=== PATIENT | female | born 1950 | race African-American/Black ===

== ENCOUNTER 2018-12-06 05:56 | Inpatient (IN) | payer OTHER ==
[~2018-12-06] VITALS: Ht 157.5 cm; Wt 48.8 kg
[2018-12-06] VITALS (7 sets, daily range): BP systolic 152–187; BP diastolic 72–93
[2018-12-06] MEDS ORDERED: ANTIHYPERTENSIVE (06:04)
[2018-12-06] MEDS ORDERED: HIGH CHOLESTEROL (06:04)
[2018-12-06 10:46] LABS: HEMATOCRIT 36.1 % (37.0-47.0); HEMOGLOBIN 11.9 gm/dL (12.0-15.0); MCH 26.2 pg (26.0-34.0); MCV 79.3 fL (80.0-100.0); RBC 4.56 mil/uL (4.20-5.00); RDW 16.6 % (10.5-14.5); WBC 8.4 thou/uL (4.0-11.0)
[2018-12-06 10:54] LABS: CALCIUM 9.7 mg/dL (8.5-10.1); CREATININE 0.9 mg/dL (0.6-1.0); POTASSIUM 3.8 mmol/L (3.5-5.1)
--- NOTE | 2018-12-06 14:09 | NUR ---
ASSESSMENT-PT LIVES IN A DUPLEX ALONE. SHE HAS 4 WHEELED AND 3 WHEELED WALKERS THAT SHE USES TO GET AROUND. SHE DOES ALL OF HER OWN COOKING, CLEANING AND LAUNDRY. PT HAD A FALL. SHE HAS HAD HH IN THE PAST BUT CANNOT REMEMBER THE NAME OF THE AGENCY. PT DOES NOT DRIVE. SHE HAS A NIECE THAT LIVES ON THE [place] SIDE THAT SHE CAN COUNT ON AND A NEPHEW BUT HE DOES NOT HAVE A CAR. PT GETS HER GROCERIES THRU [employer] [facility]IV[facility]. SHE HAS SOMEONE THAT PICKS HER UP TO TAKE HER TO [facility]. PT SAYS SHE CAN DRIVE SHORT DISTANCES IF SHE HAS TO BUT SHE IS NOT SUPPOSED TO DRIVE. AWAITING [facility] REC TO ASSIST WITH DC PLANNING. FOLLOWING.
--- NOTE | 2018-12-06 15:23 | NUR ---
ADMISSION ASSESMENT COMPLETED. VSS. A/O. NOTED TERMORS. DENIES PAIN. NO NOTED SOA. IMMOBILIZER TO RIGHT LEG. PT RESTING IN BED. FAMILY AT BEDSIDE. PT REFUSING BED ALARM- EDUCATED ABOUT POLICY BUT PT CONTINUOUS TO REFUSE. WILL CONT. TO MONITOR.
--- NOTE | 2018-12-07 05:58 | NUR ---
PT HAS THE ORTHOPEDIC SHOE TO R FOOT. SHE AMBULATES WITH UNSTEADY GAIT. USES WALKER.FALL EDUCATION PROVIDED ESPECIALLY ABOUT KEEPING BED ALARM ON-PT CALLS APPROPRIATELY BUT DOES NOT WANT BED ALARM ON. VOIDING OKAY PER BATHROOM.WITH BUE TREMORS. URINARY FREQUENCY. SOME SLIGHT SPEECH SLUR.PAIN TO R ANKLE WELL CONTROLLED WITH ORAL PAIN MEDS.
[2018-12-07 07:31] VITALS: BP 170/78
--- NOTE | 2018-12-07 09:19 | NUR ---
PT A&OX4, AMBULATES IN ROOM WITH ASSIST X1 AND WALKER. R ANKLE WITH ORTHO BOOT. C/O R ANKLE PAIN AT 6-7. PT TOLERATING PO PAIN MED WELL. WILL CONT POC.
[2018-12-07 11:57] VITALS: BP 151/74
[2018-12-07] MEDS ORDERED: NORCO 5-325 TA1 EACH PO (15:44)
[2018-12-07] MEDS ORDERED: MIRALAX17 GM PO (15:45)
--- NOTE | 2018-12-07 16:33 | NUR ---
YURY reviewed chart and spoke with nursing and attending physician. Pt was [facility] to [facility] earlier today. [facility] rehab tech states they are able to accept pt. YURY updated attending physician. Discharge orders written by hospitalist LIQUOR MAKER. Pt will d/c to [facility] later today. Rehab CM to follow and assist as needed with discharge planning.
--- NOTE | 2018-12-07 20:02 | NUR ---
PATIENT TRANSFERRED FROM [facility], REPORT FROM NAMAN/SUPA. PATIENT ALERT AND ORIENTED X 4. UP WITH SBA TO BATHROOM. PATIENT HAS BOOT TO RIGHT LOWER EXTREMITY. PATIENT WILL BE DISCHARGE TO [facility], REPORT GIVEN TO TORRIE/SUPA. PATIENT RECEIVED HYDROCODONE 2 TABLETS X 1 THIS SHIFT. PATIENT HAS LEFT AC IV IN PLACE, FLUSHED AND REMAINS PATENT. THIS RN REPORTED OFF TO LEE/SUPA.
[2018-12-07 20:38] VITALS: BP 157/89
--- NOTE | 2018-12-07 20:43 | NUR ---
Pt A/OX4,up with AX1,RW/GB to bathroom. Has ataxia with unsteady gait. Walking boot in place on right foot. CMS intact to extremity and able to move all toes. Report had been called earlier by nurse to N for transfer. Pt transferred to [facility] at this time,assisted by nursing staff. All personal belongings sent with pt. VSS.States pain is tolerable at this time.
== END 2018-12-07 20:45 | DRG 563 ==
LOC: ER 05:56 → 4E 09:27 → EROBS 09:27 → SICU 09:27 → 4E 10:40 → SICU 12-07 11:40
PROVIDERS: Emergency Medicine; ADMIT Hospitalist
PROC: 2W3LX1Z Immobilization of Right Lower Extremity using Splint (ICD-10-PCS; principal; 2018-12-06)
DX: S82.61XA Displaced fracture of lateral malleolus of right fibula, initial encounter for closed fracture (principal); R27.0 Ataxia, unspecified; G35 Multiple sclerosis; Z60.2 Problems related to living alone; Z47.89 Encounter for other orthopedic aftercare; W18.39XA Other fall on same level, initial encounter; Y93.89 Activity, other specified; Y92.090 Kitchen in other non-institutional residence as the place of occurrence of the external cause; Y99.8 Other external cause status; Z79.899 Other long term (current) drug therapy
CPT/HCPCS: 10084

== ENCOUNTER 2018-12-07 17:25 | Inpatient (IN) | payer OTHER ==
[~2018-12-07] VITALS: Ht 157.5 cm; Wt 215.9 kg
--- NOTE | ~2018-12-07 | PLAN ---
[facility] [place] [address] REHAB UNIT PLAN OF CARE Name: ALISE CANTU Room #: 514-P ADM IN M.R.#: [id number] Admission: 12/07/18 ������������������ Attend Phys: Marck Muñoz MD Discharge: ������������������ Date of : 50 Report #: [id number] THIS REPORT FOR: //name// CC: Marck Muñoz DATE OF SERVICE: 12/07/2018 PROGRESS NOTE/OVERALL PLAN OF CARE SUBJECTIVE: The patient is seen back today in followup. She is in no distress. Last recorded temperature 98, pulse 83, respirations 18, blood pressure 141/81. She is working in therapies with transfers min assist, gait min assist, 70 feet with a front-wheeled walker, 12 steps min assist. In occupational therapy, lower body dressing is standby assist for socks and hose. She is being further evaluated. ASSESSMENT: 1. 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 2. Functional mobility and activities of daily living deficits. 3. Right lateral malleolar fracture, nondisplaced, allowed weightbearing as tolerated with CAM walker boot. 4. History of bilateral rotator cuff injuries. 5. Hypertension. 6. Elevated cholesterol. PLAN: The overall plan of care is based on the preadmission screen, post-admission physician evaluation, and information garnered from therapy assessments. 1. Estimated length of stay is probably at least 1-2 weeks depending progress. 2. Medical prognosis is reasonably good. 3. Anticipated interventions include the interdisciplinary acute inpatient rehabilitation program with the goal of maximizing the patient's functional independence, so she can hopefully return back to her prior living situation. 4. Anticipated functional outcomes would be for the patient to become modified independent with transfers, mobility, ADLs, so she can hopefully return back to her prior living situation. 5. Discharge destination is back to the home setting where she lives in a duplex alone. 6. Expected therapy by discipline includes PT and OT 1-1/2 hours per day each 5 days a week throughout the duration of the acute inpatient rehabilitation stay. ��������������������������������������������� ���������������������������������������� By: ��������������������������������������������� [id number] Marck Muñoz MD /nt
[~2018-12-07 17:25] MED LIST: ANTIHYPERTENSIVE; HIGH CHOLESTEROL; MIRALAX17 GM PO; NORCO 5-325 TA1 EACH PO
[2018-12-07 20:50] VITALS: BP 169/88
--- NOTE | 2018-12-08 00:35 | NUR ---
PT ADMITTED TO [facility] FROM [facility] THIS EVENING. VSS. MEDS GIVEN ORDERED. ADMIT HX AND ASSESSMENT COMPLETED. BOOT ON RIGHT LEG IN PLACE. PRN PAIN MEDICATION WORKING WELL. FALL PRECAUTIONS IN PLACE. WILL CONTINUE TO MONTIOR FREQUENTLY.
[2018-12-08 05:31] LABS: HEMATOCRIT 33.4 % (37.0-47.0); HEMOGLOBIN 10.8 gm/dL (12.0-15.0); MCH 25.9 pg (26.0-34.0); MCHC 32.4 g/dL (28.0-37.0); MCV 80.1 fL (80.0-100.0); RBC 4.17 mil/uL (4.20-5.00); RDW 16.7 % (10.5-14.5); WBC 4.8 thou/uL (4.0-11.0)
[2018-12-08 05:39] LABS: CREATININE 0.9 mg/dL (0.6-1.0); POTASSIUM 3.7 mmol/L (3.5-5.1)
[2018-12-08 07:52] VITALS: BP 146/101
--- NOTE | 2018-12-08 10:00 | NUR ---
cm visited with pt at bedside. a & o x 3, pleasant and able to make her needs know. intro to cm, transition of care, home health, and team meetings. pt reported " live home alone, 1 step to enter house. all on main level. independent, cook, clean, manage own medication and bills. have shower chair. have combated walker for outside the home and walker with seat for inside home. drive very short distance. take cab for transportation. had hh in past but do not remember who it was. [facility]." will cont following as needed for dc needs.
--- NOTE | 2018-12-08 15:01 | NUR ---
PT ALERT AND ORIENTED TIMES FOUR. VSS, 98%RA. PT C/O RIGHT LEG PAIN PRN MEDICATIONS GIVEN WITH GOOD RELEIF. PT WORKED WELL WITH PT/OT THIS SHIFT. PT TOLERATES MEDS AND MEALS. PT PROGRESSING TOWRADS POC GOALS.
[2018-12-08 20:36] VITALS: BP 141/81
--- NOTE | 2018-12-09 01:03 | NUR ---
PT ASSESSMENT COMPLETED AND VSS. MEDS GIVEN ORDERED AND WELL TOLERATED. FALL PRECAUTIONS IN PLACE. UP TO BATHROOM WITH ASST/GAIT/WALKER/BOOT. VOIDING MODERATE AMOUNT OF YELLOW URINE. MEDICATION GIVEN FOR CONSTIPATION. 0 RESULT SO FAR. PRN PAIN MEDICATION WORKING WELL FOR R FOOT PAIN. SLEEPING. WILL CONTINUE TO MONITOR FREQUENTLY.
[2018-12-09 08:15] VITALS: BP 157/80
--- NOTE | 2018-12-09 17:49 | NUR ---
ASSUMED CARE AT APPROX 0715. PATIENT A/O X4. C/O PAIN IN RLE, RELIEVED BY MEDICATION. VSS. PATIENT UP X1 ASSIST GB AND WALKER. AMBULATING TO TOILET TO VOID. FREQUENT VOIDING. PATIENT PARTICIPATED IN THERAPY. BRACE IN PLACE FOR PT AND AT REST, REMOVED FOR DAILY CLEANSING AND SKIN INSPECTION PER ORDERS. SITTING EOB, FAMILY AT BEDSIDE. FALL PRECAUTIONS IN PLACE. PATIENT ROUNDED ON HOURLY. WILL CONTINUE TO MONITOR.
[2018-12-09 20:05] VITALS: BP 154/82
--- NOTE | 2018-12-10 03:19 | NUR ---
assumed care at approx 1900 evening 12/09. pt sitting up in bed at change of shift resting. pt alert and oriented x4, pleasant and cooperative. pt wearing ortho boot to right leg. pt took hs meds with water tolerating well and pt given pain med as ordered. pt appears to be sleeping well with hourly rounding checks. bed alarm on and call light in reach. will continue to monitor.
--- NOTE | 2018-12-10 07:37 | HC ---
[facility] [place] [address] CONSULTATION Name: ALISE CANTU Room #: 514-P ADM IN M.R.#: [id number] Admission: 12/07/18 ������������������ Attend Phys: Marck Muñoz MD Discharge: ������������������ Date of : 50 Report #: [id number] THIS REPORT FOR: //name// CC: Marck Muñoz HISTORY OF PRESENT ILLNESS: This 68-year-old female with multiple sclerosis, has some general physical limitations, but has been living independently. She uses a walker for gait and notes she has had several previous right ankle injuries, possibly with old fractures in the past. Recently, she fell at home and had increased discomfort in the right ankle. She was admitted for rehabilitation assistance at this time. At the time of my evaluation, she is comfortable and is ambulating with a walker and a protective boot on the right ankle. The ankle is mildly puffy, and there is some mild discomfort with movement and weightbearing. There is no obvious instability or deformity. Neurologic status appears to be intact. X-rays of the right ankle reveal old posttraumatic degenerative changes with obvious old healed fracture of the tip of the medial malleolus and some degenerative spurring of the lateral malleolus. There is also a small cortical irregularity at the tip of the distal fibula, which could be a nondisplaced fracture. There is no evidence of a more significant fracture and nothing that seems displaced or unstable. I have had a lengthy discussion with the patient, and I feel her new ankle injury is a very minor sprain or very minimal fracture. This should heal in nicely over the coming 2-3 weeks. I think continued use of her fracture boot would be appropriate for safety and balance. She should also continue with her walker. Clearly, she will not need any surgery. I think she can advance activities at whatever pace her comfort and strength will allow and proceed with discharge home either independently or with family assistance as necessary. If she is still having symptoms or problems with the ankle in 3 weeks, then I should see her back in my office for reevaluation. ��������������������������������������������� <ELECTRONICALLY SIGNED> ���������������������������������������� By: Marck Hoyt MD ��������������������������������������������� 12/10/18 0737 [id number] Marck Hoyt MD /nt
[2018-12-10 08:08] VITALS: BP 152/83
--- NOTE | 2018-12-10 10:53 | NUR ---
PT UP WITH CGA TO BR, AMBULATING WELL WITH THERAPY ON THE UNIT. EDUCATION PROVIDED R/T VITAMIN B12 INJECTION, AND PT VERBALIZED UNDERSTANDING. NO C/O PAIN YET THIS AM, AND DENIED NEED FOR PAIN MEDS.
--- NOTE | 2018-12-10 16:30 | NUR ---
VERY PLESANT AND COOPERTIVE. USES CALL LIGHT APPROPRIATLY. PROGESSING TOWARD GOALS.
[2018-12-10 19:54] VITALS: BP 150/71
--- NOTE | 2018-12-11 01:50 | NUR ---
PT ALERT AND ORIENTED X 4. AMB TO BR WITH WALKER AND ASSIST X 1. VERY SHAKEY WHEN AMBULATING. RIGHT ANKLE BOOT ON. PT C/O PAIN IN RIGHT ANKLE. HYDROCODONE GIVEN X 1 AND PT SLEEPING UPON REASSESSMENT. BED ALARM ON FOR SAFETY. PT APPEARS TO BE SLEEPING ON HOURLY ROUNDS.
[2018-12-11 08:14] VITALS: BP 145/88
--- NOTE | 2018-12-11 13:51 | NUR ---
ASSUMED CARE AT APROX 0715. PATIENT A/O X4. DENIES PAIN. VSS. IMMOBILIZER BOOT IN PLACE TO RLE. REMOVED FOR SKIN INSPECTION AND SHOWER. PATIENT SHOWERED WITH STANDBY ASSIST/HELP TO GATHER SUPPLIES. PATIENT TOLERATED AMBULATING FROM BATHROOM TO BED THIS DATE MULTIPLE TIMES, ONE LOSS OF BALANCE NOTED, PATIENT STEADIED HERSELF WITH STAFF MIN ASSIST. PATIENT CALLS APPROPRIATELY FOR ASSITANCE. FALL PRECAUTIONS IN PLACE. ROUNDED ON HOURLY. WILL CONTINUE TO MONITOR.
[2018-12-11 19:49] VITALS: BP 148/78
--- NOTE | 2018-12-12 01:06 | NUR ---
PT ALERT AND ORIENTED X 4. AMB TO BR WITH WALKER AND ASSIST X 1. SHAKEY WITH AMBULATION. RIGHT ANKLE BOOT ON. PT C/O PAIN IN RIGHT ANKLE. HYDROCODONE GIVEN X 1 AND PT SLEEPING UPON REASSESSMENT. BED ALARM ON FOR SAFETY. PT CHECKED ON HOURLY ROUNDS.
[2018-12-12 09:51] VITALS: BP 171/83
--- NOTE | 2018-12-12 10:19 | NUR ---
PT ALERT XS 4 PLEASANT AND COOPERATIVE WITH CARE. DC PRTONIX PER EXTRUSION UTILITY WORKER JAYANT PT REFUSING. HAS CAM BOOT TO RIGHT ANKLE/FOOT. PT WOKING WITH THERAPY ATE BREAKFAST AND TOOK ALL MEDS.
--- NOTE | 2018-12-12 13:02 | NUR ---
Nutrition: Pt seen for High BMI. Current weight of 476# inaccurate. RD re- weighed pt at 215# and pt feels weight has been stable. Intake is good, > 75% meals on regular diet. RD answered nutrition related questions and provided basic instructions for gradual weight loss/healthy eating. Low risk.
--- NOTE | 2018-12-12 14:58 | NUR ---
PT SITTING ON SIDE OF BED, WAS WORKING WITH THERAPY. PT ALERT XS 4 PLEASANT AND COOPERATIVE WITH CARE. HAD PRN PAIN MED EARLIER AND STATES IS COMFORTABLE AT THIS TIME.
--- NOTE | 2018-12-12 15:17 | NUR ---
I have reviewed the documentation by CORBIN PURDY from 12/12/18 to 12/12/18 and I concur with it. SHITAL PARIKH
[2018-12-12 19:24] VITALS: BP 180/96
--- NOTE | 2018-12-13 02:22 | NUR ---
ASSUMED CARE AT APPROX 1900 EVENING 12/12. PT ALERT AND ORIENTED X4, PLEASANT AND COOPERATIVE. PT STATED SHE HAD A GOOD DAY WITH THERAPY. PT UP TO BATHROOM WITH WALKER WITH ONE ASSIST. PT APPEARS TO BE SLEEPING SOUNDLY WITH HOURLY ROUNDING CHECKS. BED ALARM ON AND CALL LIGHT IN REACH. WILL CONTINUE TO MONITOR.
[2018-12-13 05:47] LABS: ABSOLUTE NEUTROPHILS 3.5 thou/uL (1.4-8.2); BASOPHILS 0.9 % (0.0-2.0); EOSINOPHILS 1.5 % (0.0-3.0); HEMATOCRIT 34.5 % (37.0-47.0); LYMPHOCYTES 22.1 % (24.0-44.0); MCH 25.5 pg (26.0-34.0); MCHC 31.9 g/dL (28.0-37.0); MONOCYTES 10.4 % (1.0-8.0); PLATELET COUNT 322 thou/uL (150-400); POLYS 65.1 % (36.0-66.0); RBC 4.31 mil/uL (4.20-5.00); WBC 5.4 thou/uL (4.0-11.0)
[2018-12-13 05:52] LABS: CALCIUM 8.5 mg/dL (8.5-10.1); CREATININE 0.8 mg/dL (0.6-1.0); MAGNESIUM 1.8 mg/dL (1.8-2.4); POTASSIUM 3.9 mmol/L (3.5-5.1)
[2018-12-13 09:00] VITALS: BP 137/91
--- NOTE | 2018-12-13 11:35 | NUR ---
ASSUMED CARE AT 0700. PATIENT IS ALERT AND ORIENTED X4. PATIENT SALEH'S, TECHNICAL SALES ADVISOR ARE EQUAL. LUNGS ARE CLEAR AND DEMINISHED. ABD IS SOFT WITH BSX4. UP TO THE BATHROOM TO VOID SAMANTHA COLORED URINE. PATIENT HAS CAM WALKER BOOT TO HER RIGHT LEG. PATIENT IS WBAT ON RIGHT LEG WITH BOOT ON. FALL AND SAFETY PROTOCOLS IN PLACE. C/O PAIN IN HER RIGHT LEG. MEDICATED WITH PRN PAIN MED. CONTINUES TO PROGRESS SLOWLY TOWARDS D/C GOALS. WILL CONTINUE TO MONITER.
--- NOTE | 2018-12-13 12:27 | NUR ---
team meeting, recommendation: encourage fww, ask if has support who can check on her from friends, family or hindu friends. no driving. home health (pt, ot, nursing) 12/20/18
[2018-12-13 20:05] VITALS: BP 175/89
--- NOTE | 2018-12-14 05:39 | NUR ---
ASSESSMENT: PT REMAIN ALERT AND ORIENT TIMES FOUR. UP TO BR WITH GB/WALKER AND LEFT BRACE. PT REQUESTED PAIN MEDS ONCE DURING THE NIGHT FOR GENERALIZE PAIN. POSSIBLE DC TO HOME ON 12/20. VSS, AFEBRILE. GOOD PROGRESS TOWARDS DC GOALS. WILL CONTINUE TO MONITOR.
--- NOTE | 2018-12-14 08:01 | NUR ---
ASSUMED CARE AT 0700. PATIENT IS ALERT AND ORIENTEDX4. PATIENT CONTINUES TO HAVE TREMORS R/T HER MS. PATIENT SALEH'S. DX BOARD OPERATOR ARE EQUAL. LUNGS ARE CLEAR. ABD IS SOFT WITH BSX4. PATIENT HAS CAM WALKER BOOT ON HER RIGHT LEG. FALL AND SAFETY PROTOCOLS IN PLACE. DENIES ANY PAIN AT THIS TIME. CONTINUES TO PROGESS TOWARDS D/C GOALS. WILL CONTINUE TO MONITER.
[2018-12-14 08:15] VITALS: BP 147/83
[2018-12-14 19:30] VITALS: BP 131/93
--- NOTE | 2018-12-15 02:04 | NUR ---
PT ALERT AND ORIENTED X 4. AMB TO BR WITH WALKER AND ASSIST X 1. VERY SHAKEY WITH AMBULATION. RIGHT CAM BOOT ON. PT C/O PAIN IN RIGHT FOOT. HYDROCODONE GIVEN X 1. BED ALARM ON FOR SAFETY. PT CHECKED ON HOURLY ROUNDS.
[2018-12-15 10:17] VITALS: BP 134/73
[2018-12-15 10:52] LABS: URINE BILIRUBIN NEGATIVE (Negative); URINE BLOOD NEGATIVE (Negative); URINE CLARITY CLEAR; URINE COLOR YELLOW; URINE GLUCOSE-RANDOM* NEGATIVE (Negative); URINE KETONES NEGATIVE (Negative); URINE NITRITE-REFLEX NEGATIVE (Negative); URINE PROTEIN (DIPSTICK) NEGATIVE (Negative); URINE SPECIFIC GRAVITY 1.015 (1.005-1.035)
[2018-12-15 10:54] LABS: URINE LEUKOCYTES-REFLEX 1+ (Negative)
[2018-12-15 11:02] LABS: BACTERIA-REFLEX 1-9 Few /HPF (None Seen); CASTS None Seen /LPF (None Seen); CRYSTALS None Seen /LPF (None Seen); SQUAMOUS >10 Many /LPF (0-3); URINE RBC None Seen /HPF (0-2); URINE WBC-REFLEX 6-15 Few /HPF (0-5)
--- NOTE | 2018-12-15 15:46 | NUR ---
PT ARRIVED AT 1145. DENIES PAIN. VITALS STABLE. PT HAD NOT HAD A BM SINCE 12/10. ABDOMEN FIRM AND DISTENDED WITH HYPOACTIVE BS, MAGNESIUM CITRATE ADMINISTERED MINUTES PRIOR TO DC. PT HAS HAD MULTIPLE STOOLS (SOFT, FORMED AND DIARRHEA). LS REMAIN CLEAR, O2 SATS >95% ON 3L OXYGEN VIA NC. HS STABLE, HAS A PACEMAKER/ICD. 2+ PITTING EDEMA IN BLE. EXTREMITIES ELEVATED, TEDHOSE ORDERED. PT HAS A SKIN TEAR ON LEFT KNEE THATS MIKALA. UP WITH 1 PERSON MIN ASSIST, PIVOT TRANSFERS. Q1H VISUAL CHECKS. CALL LIGHT WITHIN REACH. FALL PRECAUTIONS IN PLACE
--- NOTE | 2018-12-15 15:56 | NUR ---
ASSUMED CARES AT 0700. PT AWAKE, ALERT AND ORIENTED*4. DENIES PAIN. VITALS REMAINED STABLE. LEFT LEG BRACE REMAINS IN PLACE, PT AMBULATING WITH SBA, GAITBELT AND WALKER AND TOLERATING WELL. PT CONTINUES TO HAVE TREMORS. UA COLLECTED, AWAITING RESULTS AND ORDERS. PT TRANSFERED TO 506 THIS SHIFT. Q1H VISUAL CHECKS. CALL LIGHT WITHIN REACH. FALL PRECAUTIONS IN PLACE
[2018-12-15 21:01] VITALS: BP 152/76
--- NOTE | 2018-12-15 22:58 | NUR ---
ASSUMED CARE OF THE PT AT 191 PM. ALERT ET ORIENTED X 3. MAKES NEEDS KNOWN. WALKS WITH A SLOW SLIGHTLY UNSTEADY GAIT, USES A GAIT BELT AND THE ASSISTANCE OF ONE. HEART RATE REGULAR. LUNGS CLEAR BILATERALLY, RESP., EVEN, AND UNLABORED. +BS HEARD IN ALL 4 QUADRANTS. ABD SOFT ET NON TENDOR. +PP BILAIERALLY. CALL LIGHT WITHIN REACH.
[2018-12-16 08:30] VITALS: BP 123/75
--- NOTE | 2018-12-16 11:01 | NUR ---
ASSUMED CARES AT 0700. PT AWAKE, ALERT AND ORIENTED*4. DENIES PAIN AT THIS TIME. VITALS REMAIN STABLE. LEFT FOOT BRACE REMAINS IN PLACE, PULSES 2+/2+. PT UP WITH SBA, GAIT BELT AND WALKER. CONTINUES TO HAVE TREMORS. STARTED ON ANTIBIOTICS TODAY FOR UTI. Q1H VISUAL CHECKS. CALL LIGHT WITHIN REACH. FALL PRECAUTIONS IN PLACE
--- NOTE | 2018-12-16 13:20 | H ---
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 She followed with Dr. Deal in Neurology consultation/management and has since switch to the [facility]. The patient is ambulatory with a walker and has problems with her ataxia. She fell in her kitchen and sustained right ankle pain, did not hit her head. She was noted to have a lateral malleolar fracture, nondisplaced. She has been fitted with a Cam walker boot and is allowed weightbearing as tolerated. In the Emergency Department, there was discussion with Dr. Rankin from Orthopedic Surgery regarding her fracture. She is noted to have unsteady gait, functional mobility, and ADL deficits. She has now been admitted for acute in-hospital inpatient rehabilitation. 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 She has a history of hypertension and elevated cholesterol. She is noted to have history of rotator cuff injuries. MEDICATIONS: Please see the full medication listing. This includes vitamins, herbals, and supplements per report. ALLERGIES: No known drug allergies. SOCIAL HISTORY: She lives alone in a duplex ground floor. No stairs. Used a walker. She had food delivered from a grocery store. She has niece that assists as well as a nephew. There are couple of sisters in the area as well with one of her sisters having some early dementia and the other one having some kidney issues. 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 REVIEW OF SYSTEMS: No current complaints of chest pain, shortness of breath, or abdominal discomfort were noted. PHYSICAL EXAMINATION: GENERAL: The patient is a 68-year-old -Burkinan female, who was seen [address] [address] HISTORY AND PHYSICAL Name: ALISE CANTU Room #: 506-1 [facility]#: [id number] Admission: 12/07/18 ������������������ Attend Phys: Marck Muñoz MD Discharge: ������������������ Date of : 50 Report #: [id number] earlier. VITAL SIGNS: Last recorded temperature is 97.9, pulse is 71, respirations 18, and blood pressure 169/88. The patient was sleepy. HEENT: Facies appeared symmetric. CHEST: Sounded clear to auscultation. CARDIOVASCULAR: Regular rate and rhythm. ABDOMEN: Bowel sounds positive, nontender. GENITOURINARY AND RECTAL: Deferred. EXTREMITIES: She does have upper and lower extremity dysmetria with some ataxia movements. She has the use of the Cam boot to the right lower extremity. Strength is around a grade 4-/5 in upper and lower extremities. Functionally, she has been needing min assist with sit to stand and short distance ambulation with a walker. She does noted to have decreased shoulder range of motion as well consistent with her prior rotator cuff injuries. ASSESSMENT: This is a 68-year-old -Burkinan female with following problems: 1. Spinocerebellar ataxia with likely a component of multiple sclerosis with significant gait mobility, and ADL deficits. 2. Right lateral malleolar fracture, nondisplaced allowed weightbearing as tolerated and Cam walker boot. 3. History of bilateral rotator cuff injuries. 4. Hypertension. 5. Elevated cholesterol. PLAN: The patient is admitted for acute in-hospital inpatient rehabilitation. From a post-admission physician evaluation, there are no relevant changes since the preadmission screening. Please see the review of prior and current medical and functional conditions and comorbidities. Please see the patient's previous and current functional status. The initial plan of care involves the interdisciplinary acute inpatient rehabilitation program with the goal of maximizing the patient's functional independence, so she can hopefully return back to her prior living situation. Prognosis is reasonably good with estimated length of stay probably at least 1-2 weeks pending progress. Potential barriers include her ataxia, upper extremity dysmetria, and use of the Cam walker boot. The patient meets diagnostic criteria for an acute in-hospital inpatient rehabilitation stay. She meets the medical necessity criteria and has the tolerance for an acute rehabilitation therapies. She does have appropriate discharge goals back to the home setting. ��������������������������������������������� <ELECTRONICALLY SIGNED> ���������������������������������������� By: Marck Muñoz MD ��������������������������������������������� 12/16/18 1320 0513 0700 Marck Muñoz MD /[place]
--- NOTE | 2018-12-16 13:20 | HC ---
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 She does have two grandsons that have the similar type of ataxia and her history is through her neurologist. 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 She is a premorbid walker ambulator who fell in the kitchen and sustained right ankle pain. Did not hit her head. She was noted to have a lateral malleolar fracture, nondisplaced. She has been fitted with a Cam walker boot and is allowed weightbearing as tolerated. We are seeing her in rehabilitation medicine consultation. In the Emergency Department, there was discussion with Dr. Rankin from Orthopedic Surgery regarding her fracture. She is noted to have unsteady gait, functional mobility and ADL deficits. We are seeing her in rehabilitation medicine consultation. PAST MEDICAL HISTORY: Includes the significant ataxia, history of hypertension and elevated cholesterol. She is noted to have history of rotator cuff injuries. MEDICATIONS: Please see the full medication list. ALLERGIES: No known drug allergies. SOCIAL HISTORY: She lives alone in a duplex ground floor. No stairs. Used the walker. Food was delivered from a grocery store. She has niece that assists as well as a nephew. There are couple of sisters in the area as well. One apparently has some early dementia and the other one has kidney issues. REVIEW OF SYSTEMS: Did not offer any current complaints of chest pain, shortness of breath, abdominal discomfort. No headache. She has the ataxia. Ankle pain appears managed at this time. She has the chronic shoulder problems. No bowel or bladder changes. No fever or chills. FAMILY HISTORY: Includes the grandson that have the ataxia as noted above. PHYSICAL EXAMINATION: GENERAL: She is a pleasant 68-year-old -Citizen [place] female in no obvious distress. VITAL SIGNS: Last recorded temperature 98.4, pulse 76, respirations 18, blood pressure 151/74. [facility] [address] [place] [address] CONSULTATION Name: ALISE CANTU Room #: 506-1 [facility] IN [facility]#: [id number] Admission: 12/07/18 ������������������ Attend Phys: Marck Muñoz MD Discharge: ������������������ Date of : 50 Report #: [id number] NEUROLOGIC: The patient is alert, pleasant, oriented, appears to be a good historian. Facies appeared symmetric. She does have some lateral gaze nystagmus. She is a good historian. She has obvious upper extremity intention dysmetria with clzpsi-of-yiqa testing with ataxic movements. Upper body strength is grade 4+/5. Lower extremities, she has the Cam boot in place in right lower extremity. There is no calf swelling. She does have some ataxia movements with dysmetria of the lower extremities as well. Strength is probably a grade 4-/5. She was min assist with sit to stand. Gait was 25 feet. Min assist with a front-wheeled walker. She does have a decreased shoulder range of motion and range. IMPRESSION: An 80-year-old -Citizen [place] female with the following problem list: 1. 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 2. Functional mobility and ADL deficits. 3. Right lateral malleolar fracture, nondisplaced allowed weightbearing as tolerated in a Cam walker boot. 4. History of bilateral rotator cuff injuries. 5. Hypertension. 6. Elevated cholesterol. PLAN: The patient is a candidate for an acute [address] [place] [address] inpatient rehabilitation stay. Plan on transfer for acute in-hospital inpatient rehabilitation when medically cleared and a bed available. Thank you for asking us to assist in this patient's care. ��������������������������������������������� <ELECTRONICALLY SIGNED> ���������������������������������������� By: Marck Muñoz MD ��������������������������������������������� 12/16/18 1320 [id number] Marck Muñoz MD /nt
--- NOTE | 2018-12-16 15:50 | NUR ---
I have reviewed the documentation by CORBIN PURDY from 12/16/18 to 12/16/18 and I concur with it. YULISA CHRISTY
[2018-12-16 19:55] VITALS: BP 143/79
--- NOTE | 2018-12-17 04:31 | NUR ---
ASSESSMENT: PT REMAIN ALERT AND ORIENT TIMES FOUR. UP TO BR WITH SBA, GB AND WALKER. PRN PAIN MEDICATION GIVEN. REMAIN SAFE. WILL CONTINUE TO MONITOR.
--- NOTE | 2018-12-17 07:55 | NUR ---
ASSUMED CARE AT 0700. PATIENT IS ALERT AND ORIENTEDX 4. PATIENT HAS TREMORS R/T TO HER MS. PATIENT IS UP WITH ASSIST OF 1 STAFF AND GAITBELT. UP IN CHAIR FOR BREAKFAST. FALL AND SAFETY PROTOCOLS IN PLACE. DENIES PAIN AT THIS TIME. CONTINUES TO PROGRESS SLOWLY TOWARDS D/C GOALS. WILL CONTINUE TO MONITER.
[2018-12-17 08:19] VITALS: BP 157/90
--- NOTE | 2018-12-17 17:37 | HC ---
[facility] [place] [address] [place] [address] CONSULTATION Name: ALISE CANTU Room #: 506-1 ADM IN M.R.#: [id number] Admission: 12/07/18 ������������������ Attend Phys: Marck Muñoz MD Discharge: ������������������ Date of : 50 Report #: [id number] THIS REPORT FOR: //name// CC: Marck Muñoz DATE OF SERVICE: 12/11/2018 TYPE OF REPORT: Neurobehavioral status exam. AGE: 68. ATTENDING PHYSICIAN: Marck Muñoz M.D. ULTIMATE HOOPS TRAINER: Chapo Carolina, PhD. CLINICAL PRESENTATION: The patient is a 68-year-old female admitted to the rehabilitation unit at [facility] for a comprehensive inpatient rehabilitation program to improve functional mobility, activities of daily living and self-care and mental status secondary to deficits from spinocerebellar ataxia. Additionally, reported is a component of multiple scleroses with significant gait instability. She also carries an assessment that includes right lateral malleolar fracture, nondisplaced, allowed weightbearing as tolerated, history of bilateral rotator cuff surgery, hypertension and elevated cholesterol. A complete description of her medical condition and history can be found in her medical record. Neuropsychological consultation was requested to provide assistance in the assessment of cognitive and emotional status and to provide recommendations and services. Prior to this most recent admission, she was living alone and independently in her home. The patient had 2 children. Her daughter last year. Her son lives within the [place] area, but she does not have as frequent contact with him. The patient was independent with instrumental activities of daily living. She reports driving short distances. She has 2 sisters who live in [place]. The patient is a high school graduate. She completed an associate degree in massage therapy. She primarily worked for [employer] prior to her chcf. There is reported history of treatment for depression or anxiety. TECHNIQUES UTILIZED: Clinical interview, review of medical records, staff consultation and behavioral observation, mini mental status exam 2 standard version, clock drawing and verbal fluency assessment. EXAMINATION FINDINGS: The patient was alert and cooperative with the assessment. There is no evidence of aphasia. Her thoughts are logical and goal [facility] [address] [place] [address] CONSULTATION Name: ALISE CANTU Room #: 506-1 [facility] IN [facility].#: [id number] Admission: 12/07/18 ������������������ Attend Phys: Marck Muñoz MD Discharge: ������������������ Date of : 50 Report #: [id number] oriented. There is no evidence of thought disorder. She accurately described events surrounding her admission. Reported is a fall in which she hit her head. There was no loss of consciousness. She describes her symptoms to include sleep disturbance and difficulty with verbal fluency. Her speech is mildly dysarthric, likely secondary to muscular weakness associated with a mass. She does not report difficulty with memory, appetite or subjective feelings of anxiety or depression. Performance on the MMSE 2 brief version is within normal limits with a raw score of 15 of 16. She was 3 of 3 for initial registration, 5 of 5 for orientation to time and place. She was 2 of 3 for immediate recall of 3 items after a brief time delay and distraction. Performance was in the average range on the standard version of the MMSE 2 with a raw score of 26 of 30, T score of 45, percentile rank of 31. Areas of poor performance were noted and serial sevens with a score of 3 at 5. The patient was unable to accurately copy a simple geometric design. Very poor upper extremity dexterity is suggested and likely the result of the ataxia. Letter fluency was in the average range with a T-score of 45 and percentile rank of 31. Category fluency was in the borderline range with a T-score of 33 and percentile rank of 4. Overall, letter fluency was low average with a T-score 37, percentile rank of 10. The patient is presenting with decreased sustained attention and concentration along with visual spatial/constructive deficits. Deficits in category fluency are noted along with overall total fluency suggesting a mild level of impairment, likely result of multiple scleroses. Decreased thought organization along with perseverative responding was also noted. 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 RECOMMENDATIONS: The patient will likely require increased assistance in the management of instrumental activities of daily living. Driving is a concern and should be discontinued. An assisted living or chcf community will likely be of most benefit in helping her maintain optimal independence. Cognitive functioning through Speech Therapy would also be of benefit for higher level executive functioning and sustained attention and concentration. Her mood appears optimistic and without an exacerbation of anxiety. [facility] [address] [place] [address] CONSULTATION Name: RONY CANTUTraci Garcia Room #: 506-1 ADM IN M.R.#: [id number] Admission: 12/07/18 ������������������ Attend Phys: Marck Muñoz MD Discharge: ������������������ Date of : 50 Report #: [id number] Thank you very much for allowing me to provide the consultation on this patient. ��������������������������������������������� <ELECTRONICALLY SIGNED> ���������������������������������������� By: Chapo Carolina, PhD ��������������������������������������������� 12/17/18 1737 1818 1050 Chapo Carolina, PhD /nt
[2018-12-17 21:30] VITALS: BP 147/65
--- NOTE | 2018-12-18 02:55 | NUR ---
assumed care at approx 1900 evening 12/17. pt lying in bed at change of shift dozing off and on, appeared very tired and c/o pain to right lower leg. pt given pain med at hs and stated later it helped very much. pt up to bathroom with brace, walker, and 1 assist. pt now back to bed, appears to be sleeping soundly with hourlly rounding checks. bed alarm on and call light in reach. will continue to monitor.
[2018-12-18 07:25] VITALS: BP 163/66
--- NOTE | 2018-12-18 09:27 | NUR ---
ASSUMED CARE AT 0700. PATIENT IS ALERT AND ORIENTED X4. PATIENT SALEH'S. PHOTOGRAPHIC SUPERVISOR ARE EQUAL. PATIENT CONTINUES TO HAVE TREMORS. LUNGS ARE CLEAR. ABD IS SOFT WITH BSX4. PATIENT UP ON SIDE OF BED FOR MEALS. PATIENT IS UP TO THE BATHROOM WITH ASSIST OF 1 STAFF AND GAIT BELT. FALL AND SAFETY PROTOCOLS IN PLACE. DENIES ANY PAIN. CONTINUES TO PROGRESS TOWARDS D/C GOALS. WILL CONTINUE TO MONITER.
[2018-12-18 20:32] VITALS: BP 151/107
[2018-12-18 22:00] VITALS: BP 155/73
--- NOTE | 2018-12-19 03:20 | NUR ---
PATIENT IS ALERT AND ORIENTED. PATIENT IS UP TIMES ONE AND GAITBELT WITH WALKER TO THE BATHROOM. PATIENT HAS ATAXIA. PATIENTS LBM WAS THE 28TH. PATIENT WEARS BOOT TO RIGHT FOOT. PATIENT HAS 1(+) EDEMA TO LOWER EXTREMITIES. PATIENT DENIES PAIN. PATIENT IS ANXIOUS TO GO HOME AND DOES NOT LIKE FALL PREACUTIONS. PATIENT IS PENDING DISCHARGE WEDNESDAY OR . PATIENT IS RESTING COMFORTABLY IN BED WCM. PATIENT IS PROGRESSING TO GOALS
[2018-12-19 08:00] VITALS: BP 143/80
--- NOTE | 2018-12-19 10:28 | NUR ---
ASSUMED CARES AT 0700. PT AWAKE, ALERT AND ORIENTED *4. C/O NASAL CONGESTION AND COUGH THIS AM, HOSPITALIST NOTIFIED AND ORDERS RECEIVED. VITALS REMAIN STABLE. DENIES PAIN. CAM BOOT ON RIGHT LOWER EXTREMITY. PT UP WITH 1 PERSON MIN ASSIST, GAITBELT AND WALKER. Q1H VISUAL CHECKS. CALL LIGHT WITHIN REACH. FALL PRECAUTIONS IN PLACE
--- NOTE | 2018-12-19 15:46 | NUR ---
I have reviewed the documentation by CORBIN PURDY from 12/19/18 to 12/19/18 and I concur with it. YULISA CHRISTY
--- NOTE | 2018-12-19 16:49 | NUR ---
cm visited with pt this am rt hh choice " oh yes i can found out who i had so off this list i will chose [facility]. thank you"/mk.
[2018-12-19 19:30] VITALS: BP 153/68
--- NOTE | 2018-12-20 02:40 | NUR ---
assumed care at approx 1900 evening 12/19. pt lying in bed with head of bed elevated with pt dozing off and on. pt calm, cooperative, and appropriate. pt c/o sore throat and pain to right lower leg. pain med given as ordered and pt reported relief. pt up to bathroom with 1 assist and wearing cam boot to right lower leg. pt appears to be sleeping soundly with hourly rounding checks. bed alarm on and call light in reach. will continue to monitor.
--- NOTE | 2018-12-20 07:55 | NUR ---
ASSUMED CARE AT 0700. PATIENT IS ALERT AND ORIENTED X4. PATIENT CONTINUES TO HAVE TREMORS. PATIENT HAS RIGHT SIDE BOOT ON AND IN PLACE. UP WITH ASSIST OF 1 STAFF AND GAIT BELT AND WALKER TO BATHROOM TO VOID SAMANTHA COLORED URINE. LUNGS ARE CLEAR. ABD IS SOFT WITH BSX4. FALL AND SAFETY PROTOCOLS IN PLACE. C/O RIGHT LEG PAIN AT 0600 AND WAS MEDICATED BY NIGHT NURSE WITH PRN PAIN MED. CONTINUES TO PROGRESS TOWARDS D/C GOALS. PLAN D/C LATER TODAY. WILL COINTINUE TO MONITER.
[2018-12-20 08:22] VITALS: BP 144/87
[2018-12-20] MEDS ORDERED: ASPIR 8181 M1 PO (09:26)
[2018-12-20] MEDS ORDERED: NORVASC5 MG PO (09:26)
[2018-12-20] MEDS ORDERED: VITAMIN B-12500 MCG PO (09:26)
[2018-12-20] MEDS ORDERED: COLACE100 MG PO (09:26)
[2018-12-20] MEDS ORDERED: OXYBUTYNIN 5 MG5 M2 PO (09:26)
[2018-12-20] MEDS ORDERED: FLONASE 0.05%50 MCG NASAL (09:26)
[2018-12-20] MEDS ORDERED: ZYRTEC10 M2 PO (09:26)
--- NOTE | 2018-12-20 09:53 | NUR ---
FAXED REFERRAL TO [facility] SPOKE WITH STEPHANIE IN ADM, SHE RECEIVED REFERRAL AND WILL REVIEW. PT TO DC TODAY TO HOME. DCP TO FOLLOW.
[2018-12-20 10:49] VITALS: BP 144/87
[2018-12-20 10:51] VITALS: BP 144/87
--- NOTE | 2018-12-20 14:10 | NUR ---
team meeting, recommendation cont with dc home today with [facility] (pt, ot, nursing).
--- NOTE | 2018-12-20 14:28 | NUR ---
PATIENT GIVEN D/C INSTRUCTIONS AND SCRIPTS. PATIENT LEFT UNIT IN GOOD CONDITION WITH D/C INSTRCTIONS AND SCRIPTS.
--- NOTE | 2018-12-21 12:17 | NUR ---
VARIANCE ON 12-10-18 WAS INDICATED FOR 12/09/18 DUE TO SCHEDULE CONFLICT.
== END 2018-12-20 14:39 | disposition home health service (06) | DRG 59 ==
LOC: ENTRNSPT 12-20 14:27
PROVIDERS: Nurse Practitioner; ADMIT Physical Medicine & Rehabilitation
DX: G35 Multiple sclerosis (principal); N39.0 Urinary tract infection, site not specified; S82.64XA Nondisplaced fracture of lateral malleolus of right fibula, initial encounter for closed fracture; W18.39XA Other fall on same level, initial encounter; I10 Essential (primary) hypertension; E78.00 Pure hypercholesterolemia, unspecified; G11.1 Early-onset cerebellar ataxia; E78.5 Hyperlipidemia, unspecified; E53.8 Deficiency of other specified B group vitamins; N32.81 Overactive bladder; J30.2 Other seasonal allergic rhinitis; M19.90 Unspecified osteoarthritis, unspecified site; Z60.2 Problems related to living alone; G31.84 Mild cognitive impairment of uncertain or unknown etiology; Z82.0 Family history of epilepsy and other diseases of the nervous system; Z79.1 Long term (current) use of non-steroidal anti-inflammatories (NSAID); Z79.899 Other long term (current) drug therapy; Y93.89 Activity, other specified; Y92.89 Other specified places as the place of occurrence of the external cause; Y99.8 Other external cause status
CPT/HCPCS: 10112